=== PATIENT | male | born 1950 | race Asian ===

== ENCOUNTER 2020-08-11 12:04 | Inpatient (IN) | payer OTHER ==
[2020-08-11] MEDS ORDERED: FAMOTIDINE 20 MG/50 ML IVPB 20 MG/50 ML MG IVPB ONE ×2 (12:43→12:57)
[2020-08-11] MEDS ORDERED: methylPREDNISolone NA SUCC 125 MG/2 ML VIAL IVPUSH ONE (12:43)
[2020-08-11] MEDS ORDERED: methylPREDNISolone NA SUCC 125 MG/2 ML VIAL ONE (12:55)
[2020-08-11] MEDS ORDERED: SODIUM CHLORIDE 2,313 ML IV ONE (13:05)
[2020-08-11 14:09] LABS: BASO % 0.2 % (0-2.0); EOS % 0.3 % (0-4.5); HEMATOCRIT 49.1 % (35.4-49); LYMPH % 9.1 % (8-40); MCH 28.8 pg (25.7-33.7); MCHC 32.5 g/dl (32.0-35.9); MEAN CELL VOLUME 88.5 fl (80-96); MEAN PLT VOLUME 9.3 fl (7.5-11.1); MONO % 4.6 % (3.8-10.2); NEUT % 85.8 % (42.8-82.8); PLATELET COUNT 209 K/MM3 (134-434); RBC 5.54 M/mm3 (4.00-5.60); RDW 14.4 % (11.9-15.9); WHITE BLOOD COUNT 18.8 K/mm3 (4.0-10.0)
[2020-08-11 14:17] LABS: INR 1.05 (0.83-1.09); PROTHROMBIN TIME (PATIENT) 12.9 SEC (9.7-13.0)
[2020-08-11 14:20] LABS: ACTIVATED PTT 28.4 SECONDS (25.2-36.5)
[2020-08-11 14:37] LABS: CHLORIDE 107 mmol/L (98-107); POTASSIUM 4.9 mmol/L (3.5-5.1); SODIUM 140 mmol/L (136-145)
[2020-08-11 14:38] LABS: EPI CELLS 7 /uL (0-25.1); HYALINE CASTS 3 /uL (0-3.1); URINE APPEARANCE CLOUDY; URINE BACTERIA 97 /uL (0-1359); URINE BILIRUBIN NEGATIVE (NEGATIVE); URINE COLOR YELLOW; URINE GLUCOSE (UA) 2+ (NEGATIVE); URINE KETONE TRACE (NEGATIVE); URINE LEUK ESTERASE NEGATIVE (NEGATIVE); URINE NITRITE NEGATIVE (NEGATIVE); URINE PROTEIN 1+ (NEGATIVE); URINE RBC 9 /uL (0-23.9); URINE WBC 11 /uL (0-25.8)
[2020-08-11 14:38] LABS: CALCIUM 8.8 mg/dL (8.5-10.1)
[2020-08-11 14:39] LABS: ALBUMIN 3.4 g/dl (3.4-5.0); ANION GAP 7 MMOL/L (8-16); BLOOD UREA NITROGEN 15.6 mg/dL (7-18); CO2 26 mmol/L (21-32); GLUCOSE,RANDOM 228 mg/dL (74-106)
[2020-08-11 14:42] LABS: CREATININE 1.4 mg/dL (0.55-1.3); SGOT/AST 12 U/L (15-37); SGPT/ALT 27 U/L (13-61)
[2020-08-11 14:44] LABS: TOT PROT 6.5 g/dl (6.4-8.2)
[2020-08-11 14:45] LABS: ALK PHOS 84 U/L (45-117)
[2020-08-11 14:47] LABS: N-TERMINAL BNP 43.6 pg/ml (5-125)
[2020-08-11] MEDS ORDERED: PIPERACILLIN/TAZOB 4.5 GM 4.5 GM in DEXTROSE 5%-WATER 100 ML IVPB ONE (15:19)
[2020-08-11] MEDS ORDERED: PIPERACILLIN/TAZOB 4.5 GM 4.5 GM/100 ML BAG IVPB ONE (15:40)
[2020-08-11] MEDS ORDERED: VANCOMYCIN 1 GM in D5W (PRE-DOCKED) 1,000 MG/250 ML IVPB ONE (18:45)
[2020-08-11] MEDS ORDERED: VANCOMYCIN 1 GRAM (PRE-DOCKED) 1,000 MG/250 ML BAG IVPB ONE (18:51)
[2020-08-11 19:02] LABS: POTASSIUM 4.5 mmol/L (3.5-5.1)
[2020-08-11 19:03] LABS: CALCIUM 8.6 mg/dL (8.5-10.1)
[2020-08-11 19:04] LABS: BLOOD UREA NITROGEN 16.1 mg/dL (7-18)
[2020-08-11 19:07] LABS: CREATININE 1.2 mg/dL (0.55-1.3)
[2020-08-11] MEDS ORDERED: LACTATED RINGERS SOLUTION 1000 ML INFUS.BAG IV ONE (20:00)
[2020-08-12] MEDS ORDERED: SODIUM CHLORIDE 1,000 ML IV STA ×2 (00:12→00:29)
[2020-08-12 01:23] VITALS: BMI 33.8
[2020-08-12] MEDS: ACETAMINOPHEN 325 MG TABLET (FP) PO PRN (01:29)
[2020-08-12] MEDS: PIPERACILLIN/TAZOB 3.375 GM 3.375 GM in DEXTROSE 5%-WATER - 50 ML IVPB SCH ×2 (01:40→11:17)
[2020-08-12] MEDS: INSULIN SLIDING SCALE (NOVOLOG) 1 VIAL SQ SCH ×4 (06:42→21:48)
[2020-08-12] MEDS ORDERED: VANCOMYCIN 1 GM in D5W (PRE-DOCKED) 1,000 MG/250 ML IVPB SCH (07:00)
[2020-08-12 08:30] LABS: HEMATOCRIT 40.4 % (35.4-49); HEMOGLOBIN 13.4 GM/dl (11.7-16.9); MCH 29.1 pg (25.7-33.7); MCHC 33.2 g/dl (32.0-35.9); MEAN CELL VOLUME 87.6 fl (80-96); MEAN PLT VOLUME 8.7 fl (7.5-11.1); PLATELET COUNT 168 K/MM3 (134-434); RBC 4.61 M/mm3 (4.00-5.60); RDW 13.7 % (11.9-15.9); WHITE BLOOD COUNT 15.4 K/mm3 (4.0-10.8)
[2020-08-12 08:49] LABS: ALBUMIN 3.4 g/dl (3.4-5.0); BILIRUBIN,TOTAL 1.4 mg/dl (0.2-1); CALCIUM 8.2 mg/dl (8.5-10); MAGNESIUM 2.1 mg/dL (1.8-2.4); PHOSPHOROUS 3.1 mg/dl (2.5-4.9); POTASSIUM 4.5 mmol/L (3.5-5.1)
[2020-08-12] MEDS ORDERED: PIPERACILLIN/TAZOBACTAM 3.375 GM VIAL IVPB ONE (11:14)
[2020-08-12] MEDS ORDERED: DEXTROSE 5%-WATER - 50 ML IVPB ONE (11:15)
[2020-08-12] MEDS: ENOXAPARIN NA (PORCINE) 40 MG/0.4 ML DISP.SYRIN SQ SCH (11:17)
[2020-08-12] MEDS: SODIUM CHLORIDE 1,000 ML IV SCH (11:18)
[2020-08-13] MEDS ORDERED: PIPERACILLIN/TAZOB 3.375 GM 3.375 GM in DEXTROSE 5%-WATER - 50 ML IVPB SCH (02:00)
[2020-08-13] MEDS ORDERED: VANCOMYCIN 1 GM in D5W (PRE-DOCKED) 1,000 MG/250 ML IVPB SCH (07:00)
[2020-08-13] MEDS: INSULIN SLIDING SCALE (NOVOLOG) 1 VIAL SQ SCH ×4 (07:07→21:15)
[2020-08-13] MEDS: SODIUM CHLORIDE 1,000 ML IV SCH (07:08)
[2020-08-13 09:34] LABS: BASO % 1.5 % (0-2.0); EOS % 1.4 % (0-4.5); HEMATOCRIT 40.2 % (35.4-49); HEMOGLOBIN 13.2 GM/dl (11.7-16.9); LYMPH % 16.9 % (8-40); MCH 28.8 pg (25.7-33.7); MCHC 32.9 g/dl (32.0-35.9); MEAN CELL VOLUME 87.7 fl (80-96); MEAN PLT VOLUME 9.7 fl (7.5-11.1); MONO % 7.8 % (3.8-10.2); NEUT % 72.4 % (42.8-82.8); PLATELET COUNT 145 K/MM3 (134-434); RBC 4.59 M/mm3 (4.00-5.60); RDW 13.7 % (11.9-15.9); WHITE BLOOD COUNT 7.9 K/mm3 (4.0-10.8)
[2020-08-13] MEDS: RAMIPRIL 1.25 MG CAPSULE PO SCH (10:55)
[2020-08-13] MEDS: ENOXAPARIN NA (PORCINE) 40 MG/0.4 ML DISP.SYRIN SQ SCH (11:00)
[2020-08-13 12:20] LABS: POTASSIUM 4.3 mmol/L (3.5-5.1)
[2020-08-13 12:26] LABS: CALCIUM 8.3 mg/dL (8.5-10.1)
[2020-08-13 12:27] LABS: ALBUMIN 3.3 g/dl (3.4-5.0); BLOOD UREA NITROGEN 12.5 mg/dL (7-18); MAGNESIUM 2.1 mg/dL (1.8-2.4)
[2020-08-13 12:30] LABS: CREATININE 0.8 mg/dL (0.55-1.3)
[2020-08-13 12:31] LABS: BILIRUBIN,TOTAL 1.2 mg/dL (0.2-1)
[2020-08-13 12:32] LABS: TOT PROT 6.2 g/dl (6.4-8.2)
[2020-08-13] MEDS: ACETAMINOPHEN 325 MG TABLET (FP) PO PRN (19:51)
[2020-08-14] MEDS: INSULIN SLIDING SCALE (NOVOLOG) 1 VIAL SQ SCH ×2 (06:30→11:49)
[2020-08-14 06:50] VITALS: BP 150/94
[2020-08-14] MEDS: ACETAMINOPHEN 325 MG TABLET (FP) PO PRN (06:51)
[2020-08-14] MEDS: ENOXAPARIN NA (PORCINE) 40 MG/0.4 ML DISP.SYRIN SQ SCH (10:01)
[2020-08-14] MEDS: RAMIPRIL 1.25 MG CAPSULE PO SCH (10:01)
[2020-08-14 10:27] VITALS: PULSE 88; TEMP 98.1
== END 2020-08-14 12:35 | disposition home or self-care (01) | DRG 312 ==
LOC: JER 12:04 → JERBED 20:16 → FM/S 08-12 00:01
PROVIDERS: ADMIT Hospitalist; ATTEND Nurse Practitioner Acute Care
DX: R55 Syncope and collapse (principal); E87.2 Acidosis; E03.9 Hypothyroidism, unspecified; R21 Rash and other nonspecific skin eruption; D72.829 Elevated white blood cell count, unspecified; I10 Essential (primary) hypertension; N28.1 Cyst of kidney, acquired; E11.65 Type 2 diabetes mellitus with hyperglycemia
CPT/HCPCS: 36415; 70450-TC; 71045-TC-FY; 71260-TC; 72125-TC; 74177-TC; 80048; 80053; 81003; 82550; 82962; 83036; 83605; 83735; 83880; 84100; 84439; 84443; 84484; 85025; 85027; 85610; 85651; 85730; 86140; 86376; 86800; 87040; 87086; 93005; 93010; 99285-25; C9803; Q9967; U0003

== ENCOUNTER 2021-12-20 00:27 | Observation (INO) | payer OTHER ==
[2021-12-20 00:57] VITALS: BMI 29.8
[2021-12-20] MEDS ORDERED: ACETAMINOPHEN 500 MG TABLET (FP) PO ONE (01:37)
[2021-12-20] MEDS ORDERED: IBUPROFEN 400 MG TABLET (FP) PO ONE ×2 (01:37→02:21)
[2021-12-20] MEDS ORDERED: ACETAMINOPHEN 325 MG TABLET (FP) ONE (02:21)
[2021-12-20] MEDS ORDERED: KETOROLAC TROMETHAMINE 15 MG/ML VIAL IM ONE (04:18)
[2021-12-20] MEDS ORDERED: LIDOCAINE 5% TOPICAL PATCH TP ONE (04:18)
[2021-12-20] MEDS ORDERED: KETOROLAC TROMETHAMINE 15 MG/ML VIAL ONE (04:22)
[2021-12-20] MEDS ORDERED: LIDOCAINE 5% TOPICAL PATCH ONE (04:22)
[2021-12-20 09:59] LABS: BASO % 0.9 % (0-2.0); EOS % 2.9 % (0-4.5); HEMATOCRIT 42.8 % (35.4-49); HEMOGLOBIN 14.6 GM/dL (11.7-16.9); MCH 30.3 pg (25.7-33.7); MCHC 34.1 g/dl (32.0-35.9); MEAN CELL VOLUME 88.8 fl (80-96); MEAN PLT VOLUME 9.5 fl (7.5-11.1); MONO % 8.3 % (3.8-10.2); NEUT % 64.9 % (42.8-82.8); PLATELET COUNT 216 10^3/uL (134-434); RBC 4.82 M/mm3 (4.00-5.60); RDW 14.4 % (11.9-15.9); WHITE BLOOD COUNT 7.6 K/mm3 (4.0-10.0)
[2021-12-20 10:05] LABS: ALBUMIN 3.8 g/dl (3.4-5.0); CALCIUM 8.7 mg/dL (8.5-10.1)
[2021-12-20 10:08] LABS: CREATININE 0.9 mg/dL (0.55-1.3)
[2021-12-20 10:10] LABS: BILIRUBIN,TOTAL 1.2 mg/dL (0.2-1); TOT PROT 7.4 g/dl (6.4-8.2)
[2021-12-20] MEDS ORDERED: SODIUM CHLORIDE 1,000 ML IV SCH (11:30)
[2021-12-20] MEDS: ENOXAPARIN NA (PORCINE) 40 MG/0.4 ML DISP.SYRIN SQ SCH (12:30)
[2021-12-20] MEDS: LEVOTHYROXINE NA 25 MCG TABLET (FP) PO SCH (13:30)
[2021-12-20] MEDS: amLODIPine BESYLATE 10 MG TABLET (FP) PO SCH (13:30)
[2021-12-20] MEDS ORDERED: amLODIPine BESYLATE 10 MG TABLET (FP) ONE (14:13)
[2021-12-20] MEDS ORDERED: ENOXAPARIN NA (PORCINE) 40 MG/0.4 ML DISP.SYRIN SQ ONE (14:13)
[2021-12-20] MEDS ORDERED: LEVOTHYROXINE NA 25 MCG TABLET (FP) ONE (14:14)
[2021-12-20] MEDS ORDERED: ACETAMINOPHEN 1000 MG/100 ML BAG IVPB PRN (14:23)
[2021-12-20] MEDS ORDERED: ACETAMINOPHEN 1000 MG/100 ML BAG IVPB ONE (14:23)
[2021-12-20] MEDS ORDERED: ACETAMINOPHEN INJECTION 100 ML IVPB ONE (15:03)
[2021-12-20 17:24] LABS: CALCIUM 8.3 mg/dL (8.5-10.1)
[2021-12-20 17:25] LABS: ALBUMIN 3.2 g/dl (3.4-5.0); BLOOD UREA NITROGEN 13.9 mg/dL (7-18)
[2021-12-20 17:27] LABS: CREATININE 0.8 mg/dL (0.55-1.3)
[2021-12-20 17:29] LABS: BILIRUBIN,TOTAL 1.2 mg/dL (0.2-1)
[2021-12-20 17:30] LABS: TOT PROT 6.4 g/dl (6.4-8.2)
[2021-12-20] MEDS ORDERED: FLU VACC QS2021-22(6MOS UP)/PF 60 MCG/0.5 ML SYRINGE IM ONE (18:08)
[2021-12-20] MEDS: LIDOCAINE PATCH REMOVAL MC SCH (21:27)
[2021-12-21] MEDS ORDERED: MELATONIN 5 MG TABLETS PO ONE (00:26)
[2021-12-21] MEDS: LEVOTHYROXINE NA 25 MCG TABLET (FP) PO SCH (06:18)
[2021-12-21] MEDS: amLODIPine BESYLATE 10 MG TABLET (FP) PO SCH (10:10)
[2021-12-21] MEDS: ENOXAPARIN NA (PORCINE) 40 MG/0.4 ML DISP.SYRIN SQ SCH (10:10)
[2021-12-21 10:46] LABS: BASO % 0.7 % (0-2.0); EOS % 2.8 % (0-4.5); HEMATOCRIT 42.8 % (35.4-49); HEMOGLOBIN 14.5 GM/dL (11.7-16.9); LYMPH % 18.3 % (8-40); MCH 29.6 pg (25.7-33.7); MCHC 33.8 g/dl (32.0-35.9); MEAN CELL VOLUME 87.8 fl (80-96); MEAN PLT VOLUME 8.3 fl (7.5-11.1); MONO % 5.6 % (3.8-10.2); NEUT % 72.6 % (42.8-82.8); PLATELET COUNT 176 10^3/uL (134-434); RBC 4.88 M/mm3 (4.00-5.60); RDW 14.5 % (11.9-15.9); WHITE BLOOD COUNT 5.4 K/mm3 (4.0-10.0)
[2021-12-21 10:51] LABS: INR 1.03 (0.83-1.09); PROTHROMBIN TIME (PATIENT) 11.8 SEC (9.7-13.0)
[2021-12-21 10:54] LABS: ACTIVATED PTT 33.6 SECONDS (25.2-36.5)
[2021-12-21 11:16] LABS: MAGNESIUM 2.2 mg/dL (1.8-2.4)
[2021-12-21 11:17] LABS: ALBUMIN 3.7 g/dl (3.4-5.0); BLOOD UREA NITROGEN 13.7 mg/dL (7-18); CALCIUM 8.9 mg/dL (8.5-10.1)
[2021-12-21 11:19] LABS: BILIRUBIN,DIRECT 0.3 mg/dL (0.0-0.2); CREATININE 0.8 mg/dL (0.55-1.3); PHOSPHOROUS 2.8 mg/dL (2.5-4.9)
[2021-12-21 11:21] LABS: TOT PROT 6.9 g/dl (6.4-8.2)
[2021-12-21 11:22] LABS: BILIRUBIN,TOTAL 1.1 mg/dL (0.2-1)
[2021-12-21] MEDS: ACETAMINOPHEN 325 MG TABLET (FP) PO SCH ×3 (11:24→23:15)
[2021-12-21 12:02] LABS: ERYTHROCYTE SEDIMENTATION RATE 11 mm/hr (0-20)
[2021-12-21] MEDS: KETOROLAC TROMETHAMINE 15 MG/ML VIAL IVPUSH PRN (18:13)
[2021-12-21] MEDS: ATORVASTATIN CA 10 MG TABLET (FP) PO SCH (21:51)
[2021-12-21] MEDS: LIDOCAINE PATCH REMOVAL MC SCH (21:55)
[2021-12-22] MEDS: ACETAMINOPHEN 325 MG TABLET (FP) PO SCH ×4 (06:58→23:56)
[2021-12-22] MEDS: LEVOTHYROXINE NA 25 MCG TABLET (FP) PO SCH (06:58)
[2021-12-22] MEDS: ENOXAPARIN NA (PORCINE) 40 MG/0.4 ML DISP.SYRIN SQ SCH (09:12)
[2021-12-22] MEDS: amLODIPine BESYLATE 10 MG TABLET (FP) PO SCH (09:12)
[2021-12-22] MEDS: KETOROLAC TROMETHAMINE 15 MG/ML VIAL IVPUSH PRN ×2 (09:12→15:49)
[2021-12-22 09:24] LABS: HEMATOCRIT 44.2 % (35.4-49); HEMOGLOBIN 14.5 GM/dL (11.7-16.9); MCH 29.2 pg (25.7-33.7); MCHC 32.7 g/dl (32.0-35.9); MEAN CELL VOLUME 89.2 fl (80-96); MEAN PLT VOLUME 8.3 fl (7.5-11.1); PLATELET COUNT 184 10^3/uL (134-434); RBC 4.96 M/mm3 (4.00-5.60); RDW 14.4 % (11.9-15.9); WHITE BLOOD COUNT 6.5 K/mm3 (4.0-10.0)
[2021-12-22 09:58] LABS: ALBUMIN 3.7 g/dl (3.4-5.0); BLOOD UREA NITROGEN 16.9 mg/dL (7-18); CALCIUM 8.9 mg/dL (8.5-10.1)
[2021-12-22] MEDS ORDERED: LIDOCAINE 5% TOPICAL PATCH TP SCH (10:00)
[2021-12-22 10:02] LABS: CREATININE 0.7 mg/dL (0.55-1.3); TOT PROT 7.2 g/dl (6.4-8.2)
[2021-12-22] MEDS: LIDOCAINE 5% TOPICAL PATCH TP SCH (10:52)
[2021-12-22 11:28] LABS: URINE APPEARANCE CLEAR; URINE BILIRUBIN NEGATIVE (NEGATIVE); URINE COLOR YELLOW; URINE GLUCOSE (UA) 2+ (NEGATIVE); URINE KETONE NEGATIVE (NEGATIVE); URINE LEUK ESTERASE NEGATIVE (NEGATIVE); URINE NITRITE NEGATIVE (NEGATIVE); URINE PROTEIN NEGATIVE (NEGATIVE); URINE UROBILINOGEN 0.2 mg/dL (0.2-1.0)
[2021-12-22] MEDS: ATORVASTATIN CA 10 MG TABLET (FP) PO SCH (22:10)
[2021-12-22] MEDS: LIDOCAINE PATCH REMOVAL MC SCH (22:10)
[2021-12-23] MEDS: KETOROLAC TROMETHAMINE 15 MG/ML VIAL IVPUSH PRN (03:12)
[2021-12-23] MEDS: ACETAMINOPHEN 325 MG TABLET (FP) PO SCH ×4 (07:17→23:53)
[2021-12-23] MEDS: LEVOTHYROXINE NA 25 MCG TABLET (FP) PO SCH (07:17)
[2021-12-23 09:40] LABS: HEMATOCRIT 42.1 % (35.4-49); HEMOGLOBIN 14.3 GM/dL (11.7-16.9); MCH 30.1 pg (25.7-33.7); MEAN CELL VOLUME 88.7 fl (80-96); MEAN PLT VOLUME 8.4 fl (7.5-11.1); PLATELET COUNT 176 10^3/uL (134-434); RBC 4.75 M/mm3 (4.00-5.60); RDW 14.3 % (11.9-15.9); WHITE BLOOD COUNT 5.2 K/mm3 (4.0-10.0)
[2021-12-23] MEDS: ENOXAPARIN NA (PORCINE) 40 MG/0.4 ML DISP.SYRIN SQ SCH (10:01)
[2021-12-23] MEDS: LIDOCAINE 5% TOPICAL PATCH TP SCH (10:01)
[2021-12-23] MEDS: amLODIPine BESYLATE 10 MG TABLET (FP) PO SCH (10:01)
[2021-12-23 10:10] LABS: ALBUMIN 3.4 g/dl (3.4-5.0); BLOOD UREA NITROGEN 20.4 mg/dL (7-18); CALCIUM 8.8 mg/dL (8.5-10.1)
[2021-12-23 10:12] LABS: CREATININE 0.7 mg/dL (0.55-1.3)
[2021-12-23 10:14] LABS: BILIRUBIN,TOTAL 1.2 mg/dL (0.2-1); TOT PROT 6.9 g/dl (6.4-8.2)
[2021-12-23] MEDS: LIDOCAINE PATCH REMOVAL MC SCH (21:43)
[2021-12-23] MEDS: ATORVASTATIN CA 10 MG TABLET (FP) PO SCH (21:43)
[2021-12-23] MEDS: NAPROXEN 500 MG TABLET PO SCH (23:52)
[2021-12-24] MEDS: ACETAMINOPHEN 325 MG TABLET (FP) PO SCH ×3 (05:32→17:49)
[2021-12-24] MEDS: LEVOTHYROXINE NA 25 MCG TABLET (FP) PO SCH (06:04)
[2021-12-24 08:45] LABS: HEMATOCRIT 44.2 % (35.4-49); HEMOGLOBIN 14.6 GM/dL (11.7-16.9); MCH 29.6 pg (25.7-33.7); MCHC 33.1 g/dl (32.0-35.9); MEAN CELL VOLUME 89.4 fl (80-96); MEAN PLT VOLUME 8.4 fl (7.5-11.1); PLATELET COUNT 186 10^3/uL (134-434); RBC 4.95 M/mm3 (4.00-5.60); RDW 14.2 % (11.9-15.9); WHITE BLOOD COUNT 5.2 K/mm3 (4.0-10.0)
[2021-12-24 09:27] LABS: ALBUMIN 3.8 g/dl (3.4-5.0); BLOOD UREA NITROGEN 16.8 mg/dL (7-18); CALCIUM 8.8 mg/dL (8.5-10.1); CREATININE 0.7 mg/dL (0.55-1.3); TOT PROT 7.3 g/dl (6.4-8.2)
[2021-12-24] MEDS: amLODIPine BESYLATE 10 MG TABLET (FP) PO SCH (10:51)
[2021-12-24] MEDS: LIDOCAINE 5% TOPICAL PATCH TP SCH (10:52)
[2021-12-24] MEDS: ENOXAPARIN NA (PORCINE) 40 MG/0.4 ML DISP.SYRIN SQ SCH (10:52)
[2021-12-24] MEDS: NAPROXEN 500 MG TABLET PO SCH (10:52)
[2021-12-24 14:26] VITALS: BP 131/65; PULSE 76; TEMP 98.8
== END 2021-12-24 18:53 | disposition home or self-care (01) ==
LOC: JER 00:27 → JERBED 07:59 → J6S 15:46
PROVIDERS: ADMIT Internal Medicine; ATTEND Internal Medicine
PROC: 3E023GC Introduction of Other Therapeutic Substance into Muscle, Percutaneous Approach (ICD-10-PCS; principal; 2021-12-20)
PROC: 3E0233Z Introduction of Anti-inflammatory into Muscle, Percutaneous Approach (ICD-10-PCS; 2021-12-20)
PROC: 3E033NZ Introduction of Analgesics, Hypnotics, Sedatives into Peripheral Vein, Percutaneous Approach (ICD-10-PCS; 2021-12-20)
PROC: 3E0337Z Introduction of Electrolytic and Water Balance Substance into Peripheral Vein, Percutaneous Approach (ICD-10-PCS; 2021-12-20)
DX: S83.241A Other tear of medial meniscus, current injury, right knee, initial encounter (principal); X58.XXXA Exposure to other specified factors, initial encounter; M25.461 Effusion, right knee; R73.03 Prediabetes; Y93.9 Activity, unspecified; Y92.9 Unspecified place or not applicable; Z91.81 History of falling; R26.2 Difficulty in walking, not elsewhere classified; E78.5 Hyperlipidemia, unspecified; E03.9 Hypothyroidism, unspecified; I10 Essential (primary) hypertension; R21 Rash and other nonspecific skin eruption; R74.01 Elevation of levels of liver transaminase levels; Z88.8 Allergy status to other drugs, medicaments and biological substances
CPT/HCPCS: 36415; 73562-TC-RT-FY; 73700-TC-RT; 73721-RT-TC; 80053; 81003; 82248; 82550; 83036; 83735; 84100; 84439; 84443; 84481; 84550; 85025; 85027; 85610; 85651; 85730; 86140; 87086; 93971-TC; 96361; 96372; 96374; 96375; 97116-GP; 97162-GP; 99285-25; C9803-CS; G0378; U0003; U0005

== ENCOUNTER 2023-05-02 11:13 | Emergency (ER) | payer BC, OTHER ==
[2023-05-02 11:22] VITALS: BP 106/68; PULSE 87; RESP 17; TEMP 98.3; BMI 31.5
[2023-05-02] MEDS ORDERED: BENZONATATE 200 MG CAPSULE PO ONE (12:19)
[2023-05-02] MEDS ORDERED: ACETAMINOPHEN 500 MG TABLET (FP) PO ONE (12:20)
[2023-05-02] MEDS ORDERED: ACETAMINOPHEN 500 MG TABLET (FP) ONE (13:25)
== END 2023-05-02 14:12 | disposition home or self-care (01) ==
LOC: JER 11:13
DX: R05.9 Cough, unspecified (principal); R07.81 Pleurodynia; Z20.822 Contact with and (suspected) exposure to COVID-19
CPT/HCPCS: 0241U-QW; 26055; 71046-TC-FY; 99284-25

== ENCOUNTER 2023-05-04 17:36 | Emergency (ER) | payer BC, OTHER ==
[2023-05-04 17:44] VITALS: BP 139/80; PULSE 72; RESP 18; TEMP 97.8; BMI 31.5
[2023-05-04] MEDS ORDERED: ACETAMINOPHEN 500 MG TABLET (FP) PO ONE (18:32)
[2023-05-04] MEDS ORDERED: ACETAMINOPHEN 325 MG TABLET (FP) ONE (18:48)
[2023-05-04 19:01] LABS: BASO % 0.3 % (0-2.0); HEMOGLOBIN 14.8 GM/dL (11.7-16.9); LYMPH % 21.3 % (8-40); MCH 28.8 pg (25.7-33.7); MCHC 33.7 g/dl (32.0-35.9); MEAN CELL VOLUME 85.4 fl (80-96); MEAN PLT VOLUME 8.6 fl (7.5-11.1); MONO % 10.6 % (3.8-10.2); NEUT % 64.8 % (42.8-82.8); PLATELET COUNT 198 10^3/uL (134-434); RBC 5.15 M/mm3 (4.00-5.60); RDW 14.2 % (11.9-15.9); WHITE BLOOD COUNT 5.9 K/mm3 (4.0-10.0)
[2023-05-04 19:09] LABS: INR 1.03 (0.83-1.09); PROTHROMBIN TIME (PATIENT) 11.9 SEC (9.7-13.0)
[2023-05-04 19:12] LABS: ACTIVATED PTT 33.7 SECONDS (25.2-36.5)
[2023-05-04 19:17] LABS: POTASSIUM 4.1 mmol/L (3.5-5.1)
[2023-05-04 19:18] LABS: CALCIUM 8.6 mg/dL (8.5-10.1)
[2023-05-04 19:19] LABS: ALBUMIN 3.7 g/dl (3.4-5.0); BLOOD UREA NITROGEN 9.8 mg/dL (7-18); MAGNESIUM 2.3 mg/dL (1.8-2.4)
[2023-05-04 19:22] LABS: CREATININE 0.9 mg/dL (0.55-1.3)
[2023-05-04 19:24] LABS: BILIRUBIN,TOTAL 0.9 mg/dL (0.2-1); TOT PROT 7.4 g/dl (6.4-8.2)
[2023-05-04] MEDS ORDERED: FAMOTIDINE 20 MG TABLET PO ONE (20:23)
[2023-05-04] MEDS ORDERED: MAG HYDROX/AL HYDROX/SIMETH 30 ML UNIT-DOSE CUP PO ONE (20:23)
== END 2023-05-04 20:56 | disposition home or self-care (01) ==
LOC: JER 17:36
DX: R07.81 Pleurodynia (principal); R05.9 Cough, unspecified; R10.9 Unspecified abdominal pain; J06.9 Acute upper respiratory infection, unspecified; B97.89 Other viral agents as the cause of diseases classified elsewhere; Z20.822 Contact with and (suspected) exposure to COVID-19
CPT/HCPCS: 0241U-QW; 36415; 71046-TC-FY; 80053; 83605; 83735; 84484; 85025; 85610; 85730; 93005; 93010; 99285-25

== ENCOUNTER 2024-01-26 17:32 | Emergency (ER) | payer BC, OTHER ==
[2024-01-26 17:40] VITALS: BP 120/76; PULSE 87; RESP 18; TEMP 98.5; BMI 31.1
[2024-01-26] MEDS ORDERED: MAG HYDROX/AL HYDROX/SIMETH 30 ML UNIT-DOSE CUP ONE (20:04)
[2024-01-26] MEDS ORDERED: FAMOTIDINE 20 MG TABLET ONE (20:04)
[2024-01-26] MEDS ORDERED: ACETAMINOPHEN INJECTION 100 ML IVPB ONE (20:04)
[2024-01-26 20:09] LABS: BASO % 0.6 % (0-2.0); EOS % 3.8 % (0-4.5); HEMATOCRIT 42.6 % (35.4-49); HEMOGLOBIN 14.3 GM/dL (11.7-16.9); LYMPH % 22.7 % (8-40); MCH 29.5 pg (25.7-33.7); MCHC 33.6 g/dl (32.0-35.9); MEAN CELL VOLUME 87.8 fl (80-96); MEAN PLT VOLUME 8.2 fl (7.5-11.1); MONO % 8.1 % (3.8-10.2); NEUT % 64.8 % (42.8-82.8); PLATELET COUNT 198 10^3/uL (134-434); RBC 4.85 M/mm3 (4.00-5.60); RDW 15.2 % (11.9-15.9); WHITE BLOOD COUNT 6.7 K/mm3 (4.0-10.0)
[2024-01-26] MEDS: FAMOTIDINE 10 MG TABLET PO ONE (20:18)
[2024-01-26] MEDS: MAG HYDROX/AL HYDROX/SIMETH 30 ML UNIT-DOSE CUP PO ONE (20:18)
[2024-01-26] MEDS: FAMOTIDINE 20 MG TABLET PO ONE (20:18)
[2024-01-26] MEDS: ACETAMINOPHEN 1000 MG/100 ML BAG IVPB ONE (20:18)
[2024-01-26 20:29] LABS: POTASSIUM 4.5 mmol/L (3.5-5.1)
[2024-01-26 20:32] LABS: ALBUMIN 3.9 g/dl (3.4-5.0); BLOOD UREA NITROGEN 11.9 mg/dL (7-18); CALCIUM 9.1 mg/dL (8.5-10.1)
[2024-01-26 20:36] LABS: BILIRUBIN,TOTAL 0.9 mg/dL (0.2-1)
[2024-01-26 20:37] LABS: TOT PROT 7.5 g/dl (6.4-8.2)
[2024-01-26 20:45] LABS: CREATININE 0.8 mg/dL (0.55-1.3)
[2024-01-26 21:47] LABS: PH,URINE 5.5 (5.0-8.0); URINE APPEARANCE CLEAR; URINE BILIRUBIN NEGATIVE (NEGATIVE); URINE COLOR YELLOW; URINE GLUCOSE (UA) NEGATIVE (NEGATIVE); URINE KETONE NEGATIVE (NEGATIVE); URINE LEUK ESTERASE NEGATIVE (NEGATIVE); URINE NITRITE NEGATIVE (NEGATIVE); URINE PROTEIN NEGATIVE (NEGATIVE); URINE UROBILINOGEN 0.2 mg/dL (0.2-1.0)
[2024-01-26] MEDS ORDERED: KETOROLAC TROMETHAMINE 30 MG/1 ML VIAL ONE (21:55)
[2024-01-26] MEDS: KETOROLAC TROMETHAMINE 30 MG/1 ML VIAL IVPUSH ONE (22:01)
== END 2024-01-26 23:50 | disposition home or self-care (01) ==
LOC: JER 17:32
PROC: 3E033NZ Introduction of Analgesics, Hypnotics, Sedatives into Peripheral Vein, Percutaneous Approach (ICD-10-PCS; principal; 2024-01-26)
PROC: 3E0333Z Introduction of Anti-inflammatory into Peripheral Vein, Percutaneous Approach (ICD-10-PCS; 2024-01-26)
DX: R10.12 Left upper quadrant pain (principal); R07.89 Other chest pain
CPT/HCPCS: 36415; 71046-TC-FY; 74177-TC; 80053; 81003; 83690; 84484; 85025; 93005; 93010; 96374; 96375; 99285-25; J0131